=== PATIENT | female | born 1995 | race Caucasian/White ===

== ENCOUNTER → 2017-09-26 | Outpatient (CLI) | payer OTHER ==
--- NOTE | 2017-09-26 14:05 | DIAGNOSTIC IMAGING REPORT ---
R FEMUR 2 VIEWS HISTORY: 21 years-old Female PAIN IN RIGHT THIGH acute right thigh pain COMPARISON: Right lower extremity MRI 05/16/2016 TECHNIQUE: 2 views of the right femur FINDINGS: There is no acute fracture, dislocation, significant degenerative changes or opaque foreign body. No osteochondral defect. No large knee joint effusion identified. IMPRESSION: No acute fracture. The above report was generated using voice recognition software. It may contain grammatical, syntax or spelling errors. Electronically signed by: Leonard Bryan M.D. 09/26/2017 2:04 PM Dictated Date/Time: 09/26/2017 2:02 PM
== END | disposition home or self-care (01) ==
LOC: C.RDSM 17:45
PROVIDERS: ATTEND Internal Medicine
DX: M79.651 Pain in right thigh (principal)